=== PATIENT | female | born 1970 | race African-American/Black ===

== ENCOUNTER 2018-04-25 10:57 | Emergency (ER) | payer MEDICAID ==
[~2018-04-25] VITALS: Ht 162.6 cm; Wt 96.0 kg
[2018-04-25] MEDS ORDERED: ACETAMINOPHEN 325MG TABLET PO ONE (11:15)
[2018-04-25 13:07] VITALS: BP 119/68
== END 2018-04-25 13:32 | disposition home or self-care (01) ==
LOC: ER 12:39
DX: M75.51 Bursitis of right shoulder (principal)
CPT/HCPCS: 73030; 99284

== ENCOUNTER 2020-10-08 13:05 | Emergency (ER) | payer MEDICAID ==
[~2020-10-08] VITALS: Ht 160 cm; Wt 90.0 kg
[2020-10-08] MEDS ORDERED: LIDOCAINE HCL/EPINEPHRINE 1%-EPI 1:100,000 20 ML VIAL INFIL ONE (13:45)
[2020-10-08 14:38] VITALS: BP 160/60
== END 2020-10-08 14:39 | disposition home or self-care (01) ==
LOC: ER 13:05
DX: N61.1 Abscess of the breast and nipple (principal); Z98.890 Other specified postprocedural states
CPT/HCPCS: 10060; 99283; J3490